=== PATIENT | male | born 1990 | race Caucasian/White ===

== ENCOUNTER 2022-09-14 23:04 | Emergency (ER) | payer SELFPAY ==
[2022-09-14] MEDS ORDERED: Ampicillin/Sulbactam 3 GM VIAL ONE (23:16)
[2022-09-14] MEDS ORDERED: Sodium Chloride 0.9% 100 ML ONE (23:16)
[2022-09-14] MEDS ORDERED: Sodium Chloride 0.9% 1,000 ML ONE (23:19)
== END 2022-09-15 04:12 | disposition home or self-care (01) ==
LOC: MADERS 23:04
DX: K02.9 Dental caries, unspecified (principal); F10.129 Alcohol abuse with intoxication, unspecified; K05.10 Chronic gingivitis, plaque induced; K03.2 Erosion of teeth; F17.200 Nicotine dependence, unspecified, uncomplicated
CPT/HCPCS: 96365; J0295; J3490; J7050

== ENCOUNTER 2023-01-21 10:43 | Emergency (ER) | payer BC | END 2023-01-21 11:35 | disposition left against medical advice (07) | LOC: MADERS 10:43 | DX: Z53.21 Procedure and treatment not carried out due to patient leaving prior to being seen by health care provider (principal) ==